=== PATIENT | female | born 1965 | race African-American/Black ===

== ENCOUNTER → 2018-03-29 | Outpatient (CLI) | payer OTHER ==
--- NOTE | 2018-03-29 15:00 | RAD ---
2 view study of both knees Clinical indications: Chronic bilateral knee pain. Left knee: There is moderate spurring and mild joint space narrowing of the medial tibiofemoral joint compartment. There is minimal spurring without joint space narrowing of the lateral tibiofemoral joint compartment. Minimal spurring of the patellofemoral joint compartment is seen. Minimal left knee joint effusion is seen. No acute fracture or dislocation or osteolytic process is seen. IMPRESSION:: Mild to moderate primary degenerative osteoarthritis of the left knee. Right knee: No acute fracture or dislocation or osteolytic process is seen. No significant knee joint effusion is seen. There is moderate spurring and mild joint space narrowing of the medial tibiofemoral joint compartment. There is mild spurring without joint space narrowing of the lateral tibial femoral joint compartment. There is minimal spurring of the patellofemoral joint compartment. IMPRESSION: Mild to moderate primary degenerative osteoarthritis of the right knee. Electronically signed by: Jama Jha MD (03/29/2018 2:57 PM) [id number]
== END | disposition home or self-care (01) ==
LOC: RAD 09:48
PROVIDERS: ATTEND Family Medicine
DX: M17.0 Bilateral primary osteoarthritis of knee (principal); M25.462 Effusion, left knee; G89.29 Other chronic pain
CPT/HCPCS: 73560